=== PATIENT | female | born 1995 | race Caucasian/White ===

== ENCOUNTER 2019-08-10 03:11 | Inpatient (IN) ==
[2019-08-10] MEDS ORDERED: PENICILLIN G POTASSIUM 6 MU in DEXTROSE 5% 250 ML IV STA (03:50)
[2019-08-10] MEDS ORDERED: OXYTOCIN 30 UNITS/500 ML BAG IV PRN ×3 (03:50→19:27)
--- NOTE | 2019-08-10 03:58 | History & Physical Report ---
Date of Service August 10, 2019 Assessment & Plan (1) Group B streptococcal carriage complicating : plan pcn prophylaxis (2) Normal labor: Plan to admit as this is change from yesterday and consistent with early labor. Plan expectant management for now. arom/pit as indicated. Would like to attempt unmedicated. fetus category one. History of Present Illness Chief Complaint: contractions Primary Care Provider: NO PCP Patient is a 23yowf with iup at 40 2/7 weeks who presents to labor and delivery with contractions. Notes bloody show with wiping. +fm. complicated by gbs positive urine. labs--O+/ab-/ri/rprnr/hepb-/hiv-/gtt nl x 2/ gbs positive urine/gc/ct-/ cf/sma neg/low risk panorama/ afp negative. Allergies Allergy/AdvReac Type Severity Reaction Status Date / Time No Known Allergies Allergy Verified 08/10/19 03:25 Home Medications Home Medications Medication Instructions Recorded Confirmed Type prenat.vits,melany,ves-mfpn-jhkws 1 tab PO DAILY 12/22/18 08/10/19 History Patient History Social History (Updated 12/22/18 @ 11:03 by Leticia Duval) Preferred Language: Thai [employer] Required: No Beliefs That Will Affect Care: None marital status: marital status details: Antelmo (24) [phone] Current Living Situation: Spouse Current Living Situation Comment: spouse and 2 dogs current occupational status: employed 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 Other Information That Helps Us Care for You: No Feels Safe at Home: Yes Safety Concerns: Feels Safe At This Time Smoking Status: Never smoker Hx Alcohol Use: No Hx Substance Use: No OB History g1--present [employer] History no abnl pap, no stds Review of Systems All systems reviewed & are unremarkable except as noted in HPI & below Physical Exam Constitutional: WD/WN, vitals as above Gastrointestinal (Abdomen): soft, gravid, nt Psychiatric: A+Ox3, euthymic affect Genitourinary: cx--/-2, bulging membranes us--cephalic toco--q2-4min efm--130s with mod variabiltiy, small accels, no decels Results & Data ([facility]) Vital Signs (Past 12 Hours) Vital Signs Temp Pulse Resp BP 08/10/19 03:25 36.3 C L 90 16 119/69 08/10/19 03:22 36.3 C L 90 16 119/69 Code Status & VTE Plan VTE Prophylaxis Plan VTE Prophylaxis will be ordered: No Coding Level of Care Code None Diagnoses Group B streptococcal carriage complicating O99.820 Normal labor O80; Z37.9
[2019-08-10 04:28] LABS: Hematocrit (blood only) 39.4 % (37-47); Hemoglobin 13.5 g/dL (12.0-16.0); Mean Corpuscular Hemoglobin 29.3 pg (25-34); Mean Corpuscular Volume 85.5 fL (80-100); Mean Platelet Volume 12.6 fL (7.4-10.4); Platelet Count 159 K/uL (130-400); RDW Coefficient of Variation 12.1 % (11.5-14.5); Red Blood Count 4.61 M/uL (4.2-5.4); White Blood Count 12.06 K/uL (4.8-10.8)
[2019-08-10] MEDS: LACTATED RINGER'S 1,000 ML IV PRN ×3 (04:31→13:47)
[2019-08-10 04:44] LABS: Mean Corpuscular Hgb Conc 34.3 g/dL (32-36)
--- NOTE | 2019-08-10 07:51 | Labor Progress Brief Note ---
Date of Service August 10, 2019 Subjective Noting some contractions and more uncomfortable Assessment & Plan (1) Normal labor: arom performed. fetus category one. epidural if desired. anticipate vaginal delivery Admission and Anticipated Discharge Date Admission Date: August 10, 2019 Physical Exam Constitutional: WD/WN, vitals as above Psychiatric: A+Ox3, euthymic affect Genitourinary: cx--3+/90/-2 arom--clear toco--q3-5min efm--140s with mod variability, small accels, no decels Results & Data ([facility]) Vital Signs (Past 12 Hours) Vital Signs Temp Pulse Resp BP 08/10/19 07:37 77 115/72 08/10/19 03:25 36.3 C L 90 16 119/69 08/10/19 03:22 36.3 C L 90 16 119/69 Coding Level of Care Code None Diagnoses Normal labor O80; Z37.9
[2019-08-10] MEDS ORDERED: ePHEDrine sulfate 50 MG/ML AMP ONE (08:05)
[2019-08-10] MEDS ORDERED: BUPIVACAINE 0.25% 30 ML VIAL ONE (08:05)
[2019-08-10] MEDS ORDERED: fentaNYL 2MCG/ML ROPIV 1.25MG/ML 100 ML BAG EPI ONE ×2 (08:06→16:24)
[2019-08-10] MEDS ORDERED: fentaNYL citrate 100 MCG/2 ML VIAL ONE (08:06)
[2019-08-10] MEDS: PENICILLIN G POTASSIUM 3 MU in DEXTROSE 5% 100 ML IV PRN ×3 (08:23→17:21)
--- NOTE | 2019-08-10 08:32 | Anesthesiology Consultation ---
Date of Service August 10, 2019 Assessment & Plan (1) Encounter for pre-operative examination: Chart Review Chart Review: Acceptable Risk for Labor Epidural Consults Requested none ASA ASA2 Proposed Anesthesia Anesthesia Type: Labor Epidural Risk / Benefits Reviewed With: PT / POA / Parent / Guardian, Accepts Plan and Informed Consent Obtained History Height/Weight Height: 5 ft 5 in Weight: 86.636 kg Allergies Allergy/AdvReac Type Severity Reaction Status Date / Time No Known Allergies Allergy Verified 08/10/19 03:25 Medications Home Medications Medication Instructions Recorded Confirmed Last Taken prenat.vits,melany,ahz-fzpf-wlsls 1 tab PO DAILY 12/22/18 08/10/19 08/09/19 12:00 Active Medications Generic Name Dose Route Start Last Admin Trade Name Freq PRN Reason Stop Dose Admin Lactated Ringer's 1,000 mls @ 125 mls/hr 08/10/19 03:50 08/10/19 08:05 Lr IV 08/12/19 03:49 999 mls/hr .Q8H PRN Infusion L&D Protocol Protocol Penicillin G Potassium 3 mu/ 106 mls @ 100 mls/hr 08/10/19 03:50 08/10/19 08:23 Dextrose IV 08/20/19 03:49 100 mls/hr Q4H PRN Administration Give until delivery Past Medical History Medical History Encounter for anatomic survey Hx of migraines Varicella vaccine Exercise / Class Metabolic Activity II 4-5 Yardwork/Stairs/Walk up hill Past Family History Family History Mother Hx of migraines Past Anesthesia History No Hx of Anesthesia Complications and No Family Hx of Anesthesia Complications History of PONV No Hx of PONV and No Hx of Motion Sickness Social History Smoking Status: Never smoker Hx Alcohol Use: No Hx Substance Use: No substance use type: does not use Physical Exam Vital Signs Last Vital Signs Temp 99.0 F 08/10/19 07:37 Pulse 92 H 08/10/19 08:26 Resp 16 08/10/19 07:37 BP 115/72 08/10/19 07:37 Pulse Ox 98 08/10/19 08:26 ENMT Mouth: no dentition abnormality Thyromental Distance: > or= 3.5 Finger Breadths Mallampati Class: II Neck normal visual inspection Respiratory normal respiratory effort Auscultation: lungs clear to auscultation bilaterally Cardiovascular Rate/Rhythm: regular rate and regular rhythm Testing Laboratory Results 08/10/19 04:07
[2019-08-10] MEDS ORDERED: DiphenhydrAMINE HCL 50 MG/ML VIAL IV PRN (08:52)
[2019-08-10] MEDS ORDERED: ePHEDrine sulfate 50 MG/ML AMP IV PRN (08:52)
[2019-08-10] MEDS ORDERED: NALBUPHINE HCL INJ 10 MG/ML AMP IV PRN (08:52)
[2019-08-10] MEDS ORDERED: ONDANSETRON INJ 2 MG/ML 2 ML VIAL IV PRN (08:52)
[2019-08-10] MEDS ORDERED: NALOXONE HCL 0.4 MG/1 ML VIAL/CARP IV PRN (08:52)
[2019-08-10] MEDS ORDERED: NALOXONE HCL 1 MG in SODIUM CHLORIDE 0.9% 1000ML 1,000 ML IV PRN (08:52)
[2019-08-10] MEDS ORDERED: fentaNYL 2MCG/ML ROPIV 1.25MG/ML 100 ML BAG EPI PRN (08:52)
--- NOTE | 2019-08-10 10:49 | Labor Progress Brief Note ---
Date of Service August 10, 2019 Subjective Reason For Note: Routine Evaluation pt aware i am taking over care. came into L&D in early labor 40+ wks, AROM done by my partner. got epidural and now comfortable. Assessment & Plan (1) Supervision of normal intrauterine in primigravida: (2) Group B streptococcal carriage complicating : (3) Normal labor: on abx for gbs pos. labor pattern irregular. rec pitocin sep and pt agrees. efw 7-8#. fhts categ1. Admission and Anticipated Discharge Date Admission Date: August 10, 2019 Physical Exam Constitutional: WD/WN, vitals as above Genitourinary: OB Exam Monitor Tracing: + external FHT monitor used (150 mod variability), + external uterine monitor used (q5), + category I and + normal FHT variability Results & Data ([facility]) Vital Signs (Past 12 Hours) Vital Signs Temp Pulse Resp BP Pulse Ox 08/10/19 10:44 77 120/66 08/10/19 10:41 70 100 08/10/19 10:36 68 100 08/10/19 10:31 72 100 08/10/19 10:29 77 123/67 08/10/19 10:26 70 100 08/10/19 10:21 87 100 08/10/19 10:16 66 100 08/10/19 10:11 100 H 100 08/10/19 10:09 72 109/57 L 08/10/19 10:06 73 99 08/10/19 10:04 83 120/79 08/10/19 10:01 78 100 08/10/19 09:59 77 107/55 L 08/10/19 09:56 70 100 08/10/19 09:55 73 110/53 L 08/10/19 09:51 76 100 08/10/19 09:50 75 104/57 L 08/10/19 09:46 68 97 08/10/19 09:43 68 104/61 08/10/19 09:41 71 98 08/10/19 09:38 68 105/58 L 08/10/19 09:36 79 98 08/10/19 09:34 83 111/60 08/10/19 09:31 82 99 08/10/19 09:28 92 H 109/63 08/10/19 09:26 121 H 99 08/10/19 09:25 109 H 108/64 08/10/19 09:21 90 98 08/10/19 09:18 75 112/63 08/10/19 09:16 71 96 08/10/19 09:15 18 08/10/19 09:14 66 114/63 08/10/19 09:11 77 97 08/10/19 09:09 83 117/67 08/10/19 09:06 84 99 08/10/19 09:03 90 116/59 L 08/10/19 09:01 95 H 112/57 L 97 08/10/19 09:00 98.4 F 18 08/10/19 08:59 94 H 112/55 L 08/10/19 08:57 92 H 105/53 L 08/10/19 08:56 90 97 08/10/19 08:55 89 16 108/56 L 08/10/19 08:53 81 128/56 L 08/10/19 08:51 93 H 99 08/10/19 08:46 84 97 08/10/19 08:41 95 H 98 08/10/19 08:36 84 98 08/10/19 08:31 91 H 98 08/10/19 08:26 92 H 98 08/10/19 08:21 82 98 08/10/19 07:37 99.0 F 77 16 115/72 08/10/19 03:25 97.3 F L 90 16 119/69 08/10/19 03:22 97.3 F L 90 16 119/69 Coding Level of Care Code None Diagnoses Supervision of normal intrauterine in primigravida Z34.00 Group B streptococcal carriage complicating O99.820 Normal labor O80; Z37.9
--- NOTE | 2019-08-10 14:30 | Labor Progress Brief Note ---
Date of Service August 10, 2019 Subjective Reason For Note: Routine Evaluation occas low pain in pelvis and back Assessment & Plan (1) Normal labor: (2) Group B streptococcal carriage complicating : good progress, c/w pit Admission and Anticipated Discharge Date Admission Date: August 10, 2019 Physical Exam Constitutional: WD/WN, vitals as above Psychiatric: A+Ox3, euthymic affect Genitourinary: Manual OB Exam: + cervical dilation 7 cm, + cervical effacement 90% and + station -2 OB Exam Monitor Tracing: + external FHT monitor used (145 mod variability), + external uterine monitor used (q2-3), + category I and + normal FHT variability pit a 5 Results & Data ([facility]) Vital Signs (Past 12 Hours) Vital Signs Temp Pulse Resp BP Pulse Ox 08/10/19 14:26 130 H 100 08/10/19 14:21 91 H 97 08/10/19 14:16 99 H 99 08/10/19 14:14 100 H 108/59 L 92 08/10/19 14:11 99 H 100 08/10/19 14:06 91 H 99 08/10/19 14:01 84 99 08/10/19 13:59 90 124/80 08/10/19 13:56 90 99 08/10/19 13:51 95 H 100 08/10/19 13:46 98 H 100 08/10/19 13:44 93 H 134/63 08/10/19 13:41 98 H 99 08/10/19 13:36 84 100 08/10/19 13:31 83 100 08/10/19 13:30 18 08/10/19 13:28 86 113/68 08/10/19 13:26 78 98 08/10/19 13:21 74 98 08/10/19 13:16 69 98 08/10/19 13:14 76 114/73 08/10/19 13:11 85 98 08/10/19 13:06 75 97 08/10/19 13:01 72 98 08/10/19 13:00 98.4 F 16 08/10/19 12:59 73 110/61 08/10/19 12:56 74 97 08/10/19 12:51 73 98 08/10/19 12:46 73 99 08/10/19 12:43 81 136/73 08/10/19 12:41 77 100 08/10/19 12:36 93 H 100 08/10/19 12:31 82 100 08/10/19 12:29 146 H 146/67 H 08/10/19 12:26 80 100 08/10/19 12:21 87 99 08/10/19 12:16 90 100 08/10/19 12:13 83 113/64 08/10/19 12:11 65 98 08/10/19 12:06 109 H 98 08/10/19 12:01 72 97 08/10/19 12:00 64 117/66 08/10/19 11:56 75 96 08/10/19 11:51 69 97 08/10/19 11:49 62 94 08/10/19 11:46 70 95 08/10/19 11:43 69 103/58 L 08/10/19 11:41 69 96 08/10/19 11:36 63 95 08/10/19 11:31 59 L 96 08/10/19 11:30 18 08/10/19 11:29 64 112/59 L 08/10/19 11:26 70 98 08/10/19 11:21 71 97 08/10/19 11:16 73 97 08/10/19 11:14 59 L 112/64 08/10/19 11:11 59 L 97 08/10/19 11:06 73 99 08/10/19 11:01 75 100 08/10/19 11:00 98.1 F 16 08/10/19 10:58 65 111/59 L 08/10/19 10:56 79 100 08/10/19 10:51 68 100 08/10/19 10:46 79 100 08/10/19 10:45 16 08/10/19 10:44 77 120/66 08/10/19 10:41 70 100 08/10/19 10:36 68 100 08/10/19 10:31 72 100 08/10/19 10:30 18 08/10/19 10:29 77 123/67 08/10/19 10:26 70 100 08/10/19 10:21 87 100 08/10/19 10:16 66 100 08/10/19 10:15 16 08/10/19 10:11 100 H 100 08/10/19 10:09 72 109/57 L 08/10/19 10:06 73 99 08/10/19 10:04 83 120/79 08/10/19 10:01 78 100 08/10/19 10:00 16 08/10/19 09:59 77 107/55 L 08/10/19 09:56 70 100 08/10/19 09:55 73 110/53 L 08/10/19 09:51 76 100 08/10/19 09:50 75 104/57 L 08/10/19 09:46 68 97 08/10/19 09:45 18 08/10/19 09:43 68 104/61 08/10/19 09:41 71 98 08/10/19 09:38 68 105/58 L 08/10/19 09:36 79 98 08/10/19 09:34 83 111/60 08/10/19 09:31 82 99 08/10/19 09:30 18 08/10/19 09:28 92 H 109/63 08/10/19 09:26 121 H 99 08/10/19 09:25 109 H 108/64 08/10/19 09:21 90 98 08/10/19 09:18 75 112/63 08/10/19 09:16 71 96 08/10/19 09:15 18 08/10/19 09:14 66 114/63 08/10/19 09:11 77 97 08/10/19 09:09 83 117/67 08/10/19 09:06 84 99 08/10/19 09:03 90 116/59 L 08/10/19 09:01 95 H 112/57 L 97 08/10/19 09:00 98.4 F 18 08/10/19 08:59 94 H 112/55 L 08/10/19 08:57 92 H 105/53 L 08/10/19 08:56 90 97 08/10/19 08:55 89 16 108/56 L 08/10/19 08:53 81 128/56 L 08/10/19 08:51 93 H 99 08/10/19 08:46 84 97 08/10/19 08:41 95 H 98 08/10/19 08:36 84 98 08/10/19 08:31 91 H 98 08/10/19 08:26 92 H 98 08/10/19 08:21 82 98 08/10/19 07:37 99.0 F 77 16 115/72 08/10/19 03:25 97.3 F L 90 16 119/69 08/10/19 03:22 97.3 F L 90 16 119/69 Coding Level of Care Code None Diagnoses Normal labor O80; Z37.9 Group B streptococcal carriage complicating O99.820
[2019-08-10] MEDS ORDERED: miSOPROStoL 200 MCG TAB ONE (19:16)
--- NOTE | 2019-08-10 19:18 | Delivery Summary ---
Vaginal Delivery Summary Date of Service August 10, 2019 The patient dilated to complete and pushed to deliver a viable male Apgars 8 and 9 via over 2nd degree perineal laceration. Mouth and nose bulb suctioned at perineum. Shoulders and body delivered with ease. Infant was vigorous and crying at . Cord clamped at 30 seconds of life and to maternal abdomen where the cord was then doubly clamped and cut. Placenta delivered spontaneously and intact, three-vessel cord. Hemostasis not achieved with dilute pitocin and uterine massage, bimanual massage and drainage of the bladder for approximately 50 cc under sterile conditions. Therefore rectal cytotec 800mcg given. Uterine tone improving. Laceration repaired in usual fashion with 3-0 vicryl. Additional laceration of right labia reapproximated with 3-0 vicryl. Cervix and sulci intact. EBL 500 cc. Mother and baby stable recovery. [facility] Vaginal Delivery Charge Vaginal Delivery Codes: 20894 global code for the antepartum, delivery, and post-
[2019-08-10] MEDS ORDERED: OXYCODONE/ACETAMINOPHEN 5mg/325mg TAB PO PRN (19:27)
[2019-08-10] MEDS ORDERED: SUPERCREAM 0.870% 15 GM JAR EXT PRN (19:27)
[2019-08-10] MEDS ORDERED: DIPHTHERIA/TETANUS/PERTUSSIS 0.5 ML SYR/VIAL IM ONE (19:27)
[2019-08-10] MEDS ORDERED: HYDROCORTISONE ACETATE 25 MG SUPP PR PRN (19:27)
[2019-08-10] MEDS ORDERED: ACETAMINOPHEN 325 MG TAB PO PRN (19:27)
[2019-08-10] MEDS ORDERED: miSOPROStoL 200 MCG TAB PR ONE (19:27)
[2019-08-10] MEDS ORDERED: BENZOCAINE 20% AER SPR 82.5 GM CAN EXT PRN (19:27)
[2019-08-10] MEDS ORDERED: OXYTOCIN 20 UNITS in LACTATED RINGER'S 1,000 ML IV SCH (19:27)
[2019-08-10] MEDS: DOCUSATE SODIUM 100 MG CAP PO SCH (20:58)
--- NOTE | 2019-08-10 21:21 | Anesthesiology Progress Note ---
Date of Service August 10, 2019 Anesthesia Post Procedure Vital Signs Vital Signs: Temp Pulse Resp BP Pulse Ox 08/10/19 21:06 95 H 123/60 08/10/19 21:05 37.4 C 16 08/10/19 20:52 91 H 121/55 L 08/10/19 20:37 97 H 136/56 L 08/10/19 20:22 100 H 82/48 L 08/10/19 20:07 93 H 140/57 L 08/10/19 20:05 18 08/10/19 19:50 18 08/10/19 19:36 101 H 122/58 L 08/10/19 19:35 18 08/10/19 19:23 105 H 140/61 08/10/19 19:20 18 08/10/19 19:06 120 H 122/73 08/10/19 19:05 18 08/10/19 18:58 89 120/60 08/10/19 18:43 103 H 105/53 L 08/10/19 18:26 136 H 98 08/10/19 18:21 137 H 99 08/10/19 18:16 146 H 97 08/10/19 18:11 142 H 96 08/10/19 18:06 124 H 100 08/10/19 18:01 125 H 20 100 08/10/19 17:58 98 H 134/67 08/10/19 17:56 98 H 100 08/10/19 17:51 101 H 100 08/10/19 17:46 99 H 100 08/10/19 17:44 108 H 149/85 H 08/10/19 17:41 106 H 100 08/10/19 17:36 77 100 08/10/19 17:31 75 20 100 08/10/19 17:28 77 119/63 08/10/19 17:26 83 100 08/10/19 17:25 37.9 C H 20 08/10/19 17:21 82 99 08/10/19 17:16 101 H 100 08/10/19 17:13 83 130/64 08/10/19 17:11 87 100 08/10/19 17:06 84 99 08/10/19 17:01 82 20 99 08/10/19 16:59 83 126/64 08/10/19 16:56 88 99 08/10/19 16:51 73 99 08/10/19 16:46 80 99 08/10/19 16:44 79 120/70 08/10/19 16:41 93 H 99 08/10/19 16:36 82 98 08/10/19 16:31 86 20 100 08/10/19 16:29 84 93 08/10/19 16:28 85 114/57 L 08/10/19 16:26 89 99 08/10/19 16:23 84 92 08/10/19 16:21 84 98 08/10/19 16:16 79 99 08/10/19 16:14 78 123/67 08/10/19 16:11 71 98 08/10/19 16:06 76 97 08/10/19 16:01 75 20 97 08/10/19 15:59 78 126/68 08/10/19 15:56 97 H 98 08/10/19 15:51 112 H 98 08/10/19 15:46 114 H 100 08/10/19 15:44 118 H 118/77 08/10/19 15:41 92 H 98 08/10/19 15:36 89 96 08/10/19 15:31 79 20 97 08/10/19 15:28 99 H 112/72 08/10/19 15:26 80 97 08/10/19 15:21 95 H 98 08/10/19 15:16 83 97 08/10/19 15:13 117 H 116/78 08/10/19 15:11 87 98 08/10/19 15:10 37.4 C 20 08/10/19 15:06 89 98 08/10/19 15:01 81 97 08/10/19 14:58 93 H 117/69 08/10/19 14:56 93 H 98 08/10/19 14:51 94 H 98 08/10/19 14:46 88 97 08/10/19 14:44 84 119/71 08/10/19 14:41 115 H 97 08/10/19 14:36 99 H 97 08/10/19 14:31 117 H 99 08/10/19 14:30 20 08/10/19 14:28 90 121/73 08/10/19 14:26 130 H 100 08/10/19 14:21 91 H 97 08/10/19 14:16 99 H 99 08/10/19 14:14 100 H 108/59 L 92 08/10/19 14:11 99 H 100 08/10/19 14:06 91 H 99 08/10/19 14:01 84 99 08/10/19 13:59 90 124/80 08/10/19 13:56 90 99 08/10/19 13:51 95 H 100 08/10/19 13:46 98 H 100 08/10/19 13:44 93 H 134/63 08/10/19 13:41 98 H 99 08/10/19 13:36 84 100 08/10/19 13:31 83 100 08/10/19 13:30 18 08/10/19 13:28 86 113/68 08/10/19 13:26 78 98 08/10/19 13:21 74 98 08/10/19 13:16 69 98 08/10/19 13:14 76 114/73 08/10/19 13:11 85 98 08/10/19 13:06 75 97 08/10/19 13:01 72 98 08/10/19 13:00 36.9 C 16 08/10/19 12:59 73 110/61 08/10/19 12:56 74 97 08/10/19 12:51 73 98 08/10/19 12:46 73 99 08/10/19 12:43 81 136/73 08/10/19 12:41 77 100 08/10/19 12:36 93 H 100 08/10/19 12:31 82 100 08/10/19 12:29 146 H 146/67 H 08/10/19 12:26 80 100 08/10/19 12:21 87 99 08/10/19 12:16 90 100 08/10/19 12:13 83 113/64 08/10/19 12:11 65 98 08/10/19 12:06 109 H 98 08/10/19 12:01 72 97 08/10/19 12:00 64 117/66 08/10/19 11:56 75 96 08/10/19 11:51 69 97 08/10/19 11:49 62 94 08/10/19 11:46 70 95 08/10/19 11:43 69 103/58 L 08/10/19 11:41 69 96 08/10/19 11:36 63 95 08/10/19 11:31 59 L 96 06/30/20 11:30 18 08/10/19 11:29 64 112/59 L 08/10/19 11:26 70 98 08/10/19 11:21 71 97 08/10/19 11:16 73 97 08/10/19 11:14 59 L 112/64 08/10/19 11:11 59 L 97 08/10/19 11:06 73 99 08/10/19 11:01 75 100 08/10/19 11:00 36.7 C 16 08/10/19 10:58 65 111/59 L 08/10/19 10:56 79 100 08/10/19 10:51 68 100 08/10/19 10:46 79 100 08/10/19 10:45 16 08/10/19 10:44 77 120/66 08/10/19 10:41 70 100 08/10/19 10:36 68 100 08/10/19 10:31 72 100 08/10/19 10:30 18 08/10/19 10:29 77 123/67 08/10/19 10:26 70 100 08/10/19 10:21 87 100 08/10/19 10:16 66 100 08/10/19 10:15 16 08/10/19 10:11 100 H 100 08/10/19 10:09 72 109/57 L 08/10/19 10:06 73 99 08/10/19 10:04 83 120/79 08/10/19 10:01 78 100 08/10/19 10:00 16 08/10/19 09:59 77 107/55 L 08/10/19 09:56 70 100 08/10/19 09:55 73 110/53 L 08/10/19 09:51 76 100 08/10/19 09:50 75 104/57 L 08/10/19 09:46 68 97 08/10/19 09:45 18 08/10/19 09:43 68 104/61 08/10/19 09:41 71 98 08/10/19 09:38 68 105/58 L 08/10/19 09:36 79 98 08/10/19 09:34 83 111/60 08/10/19 09:31 82 99 08/10/19 09:30 18 08/10/19 09:28 92 H 109/63 08/10/19 09:26 121 H 99 08/10/19 09:25 109 H 108/64 08/10/19 09:21 90 98 08/10/19 09:18 75 112/63 08/10/19 09:16 71 96 08/10/19 09:15 18 08/10/19 09:14 66 114/63 08/10/19 09:11 77 97 08/10/19 09:09 83 117/67 08/10/19 09:06 84 99 08/10/19 09:03 90 116/59 L 08/10/19 09:01 95 H 112/57 L 97 08/10/19 09:00 36.9 C 18 08/10/19 08:59 94 H 112/55 L 08/10/19 08:57 92 H 105/53 L 08/10/19 08:56 90 97 08/10/19 08:55 89 16 108/56 L 08/10/19 08:53 81 128/56 L 08/10/19 08:51 93 H 99 08/10/19 08:46 84 97 08/10/19 08:41 95 H 98 08/10/19 08:36 84 98 08/10/19 08:31 91 H 98 08/10/19 08:26 92 H 98 08/10/19 08:21 82 98 08/10/19 07:37 37.2 C 77 16 115/72 08/10/19 03:25 36.3 C L 90 16 119/69 08/10/19 03:22 36.3 C L 90 16 119/69 Transfer of Care Handoff Completed per policy Notes Mental Status: alert / awake / arousable and participated in evaluation Patient Amnestic to Procedure: Yes Nausea / Vomiting: adequately controlled Pain: adequately controlled Airway Patency, RR, SpO2: stable & adequate BP & HR: stable & adequate Hydration State: stable & adequate Anesthetic Complications: no major complications apparent and Pt Satisfied with anesthetic care
[2019-08-10] MEDS: IBUPROFEN 600 MG TAB PO PRN (22:35)
[2019-08-11 06:01] LABS: Hematocrit (blood only) 32.2 % (37-47); Hemoglobin 10.9 g/dL (12.0-16.0)
--- NOTE | 2019-08-11 07:49 | Obstetrical Progress Note ---
Date of Service August 11, 2019 Assessment & Plan (1) examination following vaginal delivery: stable, routine care. bottle, rh pos, ri. Day #:: 1 Subjective Ambulation: ambulating normally Voiding: no voiding problems Diet Tolerance:: regular diet Lochia:: Small Feeding Type:: bottle feeding denies pain issues. Physical Exam Constitutional WD/WN, vitals as above Respiratory normal respiratory effort, lungs clear to auscultation Cardiovascular Rate/Rhythm: regular rate and regular rhythm Gastrointestinal (Abdomen) Percussion/Palpation: abdomen soft; abdomen nontender ff 2down nt Psychiatric A+Ox3, euthymic affect Results & Data ([facility]) Vital Signs (Past 12 Hours) Vital Signs Temp Pulse Pulse Resp BP BP Pulse Ox 08/11/19 03:05 97.7 F 71 16 110/74 97 08/10/19 23:25 98.8 F 83 20 115/73 97 08/10/19 21:50 99.1 F 85 18 108/72 08/10/19 21:06 95 H 123/60 08/10/19 21:05 99.3 F 16 08/10/19 20:52 91 H 121/55 L 08/10/19 20:37 97 H 136/56 L 08/10/19 20:22 100 H 82/48 L 08/10/19 20:07 93 H 140/57 L 08/10/19 20:05 18 08/10/19 19:50 18
[2019-08-11] MEDS: DOCUSATE SODIUM 100 MG CAP PO SCH ×2 (08:39→20:53)
[2019-08-11] MEDS: IBUPROFEN 600 MG TAB PO PRN ×2 (11:48→16:25)
--- NOTE | 2019-08-12 07:16 | Obstetrical Progress Note ---
Date of Service August 12, 2019 Assessment & Plan (1) examination following vaginal delivery: - doing well - desires d/c - instructions given - f/u in 6 weeks Subjective Ambulation: ambulating normally Diet Tolerance:: regular diet Feeding Type:: bottle feeding Physical Exam Constitutional WD/WN, vitals as above Gastrointestinal (Abdomen) Fundus firm below umbilicus Musculoskeletal No deep calf tenderness Results & Data [facility]) Vital Signs (Past 12 Hours) Vital Signs Temp Pulse Resp BP 08/11/19 23:45 98.2 F 60 16 106/68
[2019-08-12] MEDS: IBUPROFEN 600 MG TAB PO PRN (08:42)
[2019-08-12] MEDS: DOCUSATE SODIUM 100 MG CAP PO SCH (08:42)
== END 2019-08-12 11:15 | disposition home or self-care (01) | DRG 807 ==
LOC: OPB 03:11 → 4S1 03:14 → 4S2 21:47

== ENCOUNTER 2021-08-18 09:50 | Inpatient (IN) ==
[2021-08-18] MEDS ORDERED: OXYTOCIN 30 UNITS/500 ML BAG IV PRN ×2 (13:12→18:07)
--- NOTE | 2021-08-18 13:20 | History & Physical Report ---
Date of Service August 18, 2021 Assessment & Plan (1) Supervision of normal intrauterine in multigravida: Plan: 25-year-old at 39 weeks 6 days gestational age presents in early labor. 1. Fetus: Cat 1 2. Labor: Progressing. Will AROM following epidural placement 3. GBS negative 4. Vitals normal (2) Normal labor: Admission and Anticipated Discharge Date Admission Date: August 18, 2021 History of Present Illness Primary Care Provider: NO PCP 25-year-old admitted at 39 weeks 6 days gestational age in early labor. Patient having regular painful contractions. Denies leakage of fluid vaginal bleeding and having good movement. has been uncomplicated to date. OB Labs: Blood Type O Positive 02/07/21 Antibody Screen NEGATIVE 02/07/21 Hemoglobin 12.5 g/dL (12.0-16.0) 05/31/21 Hematocrit 36.5 % (37-47) L 05/31/21 Mean Corpuscular Volume 87.0 fL (80-100) 02/07/21 Platelet Count 194 K/uL (130-400) 02/07/21 Rubella IgG Antibody Immune (Immune) 02/07/21 Rapid Plasma Reagin Nonreactive (Nonreactive) 02/07/21 Hepatitis B Surface Antigen Neg (Neg) 02/07/21 Hepatitis C Antibody Neg (Neg) 02/07/21 HIV (1&2) Ab and P24 Ag, 4th Gener Neg (Neg) 02/07/21 Glucose 1 Hour 50 gm Load 91 mg/dl (70-130) 05/31/21 Maternal Serum Alpha Fetoprotein 31.8 ng/mL 03/07/21 OB Optional Labs: Chlamydia trachomatis RNA NOT DETECTED (NOT DETECTED) 02/07/21 Neisseria gonorrhoeae RNA NOT DETECTED (NOT DETECTED) 02/07/21 Alpha Fetoprotein Triple Screen SEE NOTE 03/07/21 Labs Reviewed: CF/SMA negative in prior (12/28/18) Cfdna low risk--mln Allergies Allergy/AdvReac Type Severity Reaction Status Date / Time No Known Allergies Allergy Verified 08/16/21 14:33 Home Medications Medication Instructions Recorded Confirmed Type prenat.vits,melany,hsk-[id number]-ffjhf 1 tab PO DAILY 12/22/18 08/16/21 History cetirizine 10 mg tablet (Zyrtec) 10 mg PO DAILY PRN 01/16/21 08/16/21 History Patient History Medical History (Updated 08/18/21 @ 13:18 by Christian Saunders MD) Hx of migraines Varicella vaccine Family History Mother Hx of migraines Social History (Updated 01/16/21 @ 11:00 by María Hernandez) Smoking Status: Never smoker Hx Alcohol Use: No Hx Substance Use: No Preferred Language: French Clinical Reimbursement Specialist Required: No Beliefs That Will Affect Care: None marital status: marital status details: Antelmo (26) [phone] Current Living Situation: Family Current Living Situation Comment: spouse, son and 2 dogs current occupational status: employed 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 Results & Data ([facility]) Vital Signs (Past 12 Hours) Vital Signs Temp Pulse Resp BP 08/18/21 10:04 36.5 C 20 08/18/21 10:00 109 H 118/77 Code Status & VTE Plan VTE Prophylaxis Plan VTE Prophylaxis will be ordered: No Coding Level of Care Code None Diagnoses Supervision of normal intrauterine in multigravida Z34.80 Normal labor O80; Z37.9
[2021-08-18] MEDS: LACTATED RINGER'S 1,000 ML IV PRN ×2 (13:49→15:00)
[2021-08-18] MEDS ORDERED: NALOXONE HCL 1 MG in SODIUM CHLORIDE 0.9% 1000ML 1,000 ML IV PRN (13:51)
[2021-08-18] MEDS ORDERED: NALOXONE HCL 0.4 MG/1 ML VIAL/CARP IV PRN (13:51)
[2021-08-18] MEDS ORDERED: NALBUPHINE HCL INJ 10 MG/ML AMP IV PRN (13:51)
[2021-08-18] MEDS ORDERED: diphenhydrAMINE 50 MG/ML VIAL IV PRN (13:51)
[2021-08-18] MEDS ORDERED: ONDANSETRON INJ 2 MG/ML 2 ML VIAL IV PRN (13:51)
[2021-08-18] MEDS ORDERED: ePHEDrine sulfate 50 MG/ML AMP IV PRN (13:51)
[2021-08-18] MEDS ORDERED: fentaNYL 2MCG/ML ROPIVACAINE 1.25MG/ML 100 ML BAG EPI PRN (13:51)
[2021-08-18] MEDS ORDERED: ePHEDrine sulfate 50 MG/ML AMP ONE (13:59)
[2021-08-18] MEDS ORDERED: LIDOCAINE 2%/EPINEPHRINE 1:200,000 20 ML SDV ONE (14:00)
[2021-08-18] MEDS ORDERED: BUPIVACAINE 0.25% 30 ML VIAL ONE (14:00)
[2021-08-18] MEDS ORDERED: fentaNYL 2MCG/ML ROPIVACAINE 1.25MG/ML 100 ML BAG EPI ONE (14:00)
[2021-08-18] MEDS ORDERED: fentaNYL citrate 100 MCG/2 ML VIAL ONE (14:00)
[2021-08-18] MEDS ORDERED: SODIUM CHLORIDE 0.9% INJ 10 ML VIAL ONE (14:00)
[2021-08-18 14:14] LABS: Hematocrit (blood only) 39.3 % (34.1-44.9); Hemoglobin 13.4 g/dl (12.0-16.0); Mean Corpuscular Hemoglobin 27.9 pg (25.0-34.0); Mean Corpuscular Hgb Conc 34.1 g/dL (32.0-36.0); Mean Corpuscular Volume 81.7 fL (80.0-100.0); Platelet Count 174 K/uL (130-400); RDW Coefficient of Variation 12.4 % (11.5-14.5); RDW Standard Deviation 36.5 fL (36.4-46.3); Red Blood Count 4.81 M/uL (3.93-5.22); White Blood Count 13.01 K/ul (4.8-10.8)
--- NOTE | 2021-08-18 14:19 | Anesthesiology Consultation ---
Date of Service August 18, 2021 Assessment & Plan (1) Encounter for pre-operative examination: Chart Review Chart Review: Acceptable Risk for Labor Epidural Consults Requested none ASA ASA2 Proposed Anesthesia Anesthesia Type: Labor Epidural Risk / Benefits Reviewed With: PT / POA / Parent / Guardian, Accepts Plan and Informed Consent Obtained History Height/Weight Height: 5 ft 5 in Weight: 90.265 kg Allergies Allergy/AdvReac Type Severity Reaction Status Date / Time No Known Allergies Allergy Verified 08/18/21 13:28 Medications Home Medications Medication Instructions Recorded Confirmed Last Taken prenat.vits,melany,bgt-sizq-[id number] 1 tab PO DAILY 12/22/18 08/18/21 08/09/19 12:00 cetirizine 10 mg tablet (Zyrtec) 10 mg PO DAILY PRN 01/16/21 08/18/21 Unknown Active Medications Generic Name Dose Route Start Last Admin Trade Name Freq PRN Reason Stop Dose Admin Lactated Ringer's 1,000 mls @ 125 mls/hr 08/18/21 13:12 08/18/21 13:49 Lr IV 08/20/21 13:11 999 mls/hr .Q8H PRN Administration L&D Protocol Protocol Past Medical History Medical History Hx of migraines Varicella vaccine Exercise / Class Metabolic Activity II 4-5 Yardwork/Stairs/Walk up hill Past Family History Family History Mother Hx of migraines Past Anesthesia History No Hx of Anesthesia Complications and No Family Hx of Anesthesia Complications History of PONV No Hx of PONV and No Hx of Motion Sickness Social History Smoking Status: Never smoker Hx Alcohol Use: No Hx Substance Use: No substance use type: does not use Physical Exam Vital Signs Last Vital Signs Temp 97.7 F 08/18/21 10:04 Pulse 109 H 08/18/21 10:00 Resp 20 08/18/21 10:04 BP 118/77 08/18/21 10:00 ENMT Mouth: no dentition abnormality Thyromental Distance: > or= 3.5 Finger Breadths Mallampati Class: II Neck normal visual inspection Respiratory normal respiratory effort Auscultation: lungs clear to auscultation bilaterally Cardiovascular Rate/Rhythm: regular rate and regular rhythm Testing Laboratory Results 08/18/21 13:56
--- NOTE | 2021-08-18 15:10 | Labor Progress Brief Note ---
Date of Service August 18, 2021 Subjective Reason For Note: Routine Evaluation Assessment & Plan (1) Supervision of normal intrauterine in multigravida: Plan: 25-year-old at 39 weeks 6 days gestational age presents in early labor. 1. Fetus: Cat 1 2. Labor: Progressing. Will AROM following epidural placement 3. GBS negative 4. Vitals normal (2) Normal labor: Admission and Anticipated Discharge Date Admission Date: August 18, 2021 Physical Exam Genitourinary: Manual OB Exam: + cervical dilation 8 cm, + cervical effacement 100%, + station 0 and + amniotic fluid clear OB Exam Monitor Tracing: + ext ernal FHT monitor used, + external uterine monitor used, + category I and + normal FHT variability; no early decelerations present, no late decelerations present and no variable decelerations Results & Data ([facility]) Vital Signs (Past 12 Hours) Vital Signs Temp Pulse Resp BP Pulse Ox 08/18/21 15:07 85 100 08/18/21 15:02 79 100 08/18/21 15:01 94 H 115/88 08/18/21 14:57 99 H 100 08/18/21 14:56 87 118/80 08/18/21 14:54 82 92 08/18/21 14:52 88 99 08/18/21 14:51 80 115/70 08/18/21 14:48 88 109/68 08/18/21 14:47 86 99 08/18/21 14:42 113 H 99 08/18/21 14:40 98 H 117/69 08/18/21 14:38 117 H 101/58 L 08/18/21 14:37 115 H 98 08/18/21 14:35 93 H 121/72 08/18/21 14:34 99 H 123/71 08/18/21 14:32 99 H 97 08/18/21 14:27 104 H 97 08/18/21 14:22 102 H 97 08/18/21 14:17 99 H 98 08/18/21 10:04 36.5 C 20 08/18/21 10:00 109 H 118/77 Coding Level of Care Code None Diagnoses Supervision of normal intrauterine in multigravida Z34.80 Normal labor O80; Z37.9
[2021-08-18] MEDS ORDERED: ACETAMINOPHEN 325 MG TAB PO PRN (18:07)
[2021-08-18] MEDS ORDERED: bisacodyL 10 MG SUPP PR PRN (18:07)
[2021-08-18] MEDS ORDERED: HYDROCORTISONE ACETATE 25 MG SUPP PR PRN (18:07)
[2021-08-18] MEDS ORDERED: DIPHTHERIA/TETANUS/PERTUSSIS 0.5 ML SYR/VIAL IM ONE (18:07)
[2021-08-18] MEDS ORDERED: BENZOCAINE 20% AER SPR 82.5 GM CAN EXT PRN (18:07)
[2021-08-18] MEDS: DOCUSATE SODIUM 100 MG CAP PO SCH (20:48)
--- NOTE | 2021-08-18 21:54 | Anesthesia Procedure Note ---
Date of Service August 18, 2021 Anesthesia Post Epidural Note Vital Signs Vital Signs: Temp Pulse Resp BP Pulse Ox 37.2 C 92 H 18 125/77 99 08/18/21 21:35 08/18/21 21:35 08/18/21 21:35 08/18/21 21:35 08/18/21 17:42 Notes Mental Status: alert / awake / arousable Nausea / Vomiting: adequately controlled Pain: adequately controlled Airway Patency, RR, SpO2: stable & adequate BP & HR: stable & adequate Hydration State: stable & adequate Neuraxial Anesthesia: was administered and sensory block is resolving Anesthetic Complications: no major complications apparent and Pt Satisfied with anesthetic care Epidural: Removed without complications and With tip intact
[2021-08-19] MEDS: IBUPROFEN 600 MG TAB PO PRN ×4 (00:42→19:42)
--- NOTE | 2021-08-19 07:53 | Obstetrical Progress Note ---
Date of Service August 19, 2021 Assessment & Plan (1) Encounter for care and examination after delivery: Day 1 s/p . Doing well. Stable for discharge if preferred. Subjective Ambulation: ambulating normally Voiding: no voiding problems Passing Gas:: Yes Diet Tolerance:: regular diet Lochia:: Moderate Feeding Type:: breast feeding Physical Exam Constitutional WD/WN, vitals as above Respiratory normal respiratory effort; no respiratory distress and no labored breathing Gastrointestinal (Abdomen) Inspection/Auscultation: abdomen normal to inspection; abdomen not distended Percussion/Palpation: abdomen soft; abdomen nontender, no guarding and abdomen not rigid Genitourinary OB Exam Abdomen: + fundal height Fundus: + firm and + relation to umbilicus (Below); not tender or not boggy Results & Data ([facility]) Vital Signs (Past 12 Hours) Vital Signs Temp Pulse Pulse Resp BP BP 08/19/21 00:45 36.8 C 79 18 113/65 08/18/21 21:35 37.2 C 92 H 18 125/77 08/18/21 20:02 116 H 106/62
[2021-08-19] MEDS: DOCUSATE SODIUM 100 MG CAP PO SCH ×2 (08:11→19:42)
[2021-08-19] MEDS: FERROUS SULFATE 325 MG TAB PO SCH (08:11)
[2021-08-19] MEDS: PRENATAL VITAMIN 1 TAB PO SCH (08:12)
[2021-08-19] MEDS ORDERED: CETIRIZINE HCL 10 MG TABLET PO PRN (08:21)
[2021-08-19] MEDS ORDERED: bisacodyL 5 MG TABEC PO SCH (20:00)
[2021-08-20] MEDS: IBUPROFEN 600 MG TAB PO PRN ×2 (05:29→13:23)
--- NOTE | 2021-08-20 07:11 | Obstetrical Progress Note ---
Date of Service August 20, 2021 Assessment & Plan (1) Encounter for care and examination after delivery: Day 2 s/p . Doing well. Stable for discharge Subjective Ambulation: ambulating normally Voiding: no voiding problems Passing Gas:: Yes Diet Tolerance:: regular diet Lochia:: Moderate Feeding Type:: breast feeding Physical Exam Constitutional WD/WN, vitals as above Respiratory normal respiratory effort; no respiratory distress and no labored breathing Gastrointestinal (Abdomen) Inspection/Auscultation: abdomen normal to inspection; abdomen not distended Percussion/Palpation: abdomen soft; abdomen nontender, no guarding and abdomen not rigid Genitourinary OB Exam Abdomen: + fundal height Fundus: + firm and + relation to umbilicus (Below); not tender or not boggy Results & Data ([facility]) Vital Signs (Past 12 Hours) Vital Signs Temp Pulse Resp BP 08/19/21 23:45 36.7 C 68 18 101/56 L 08/19/21 21:30 36.8 C 96 H 18 135/83
[2021-08-20] MEDS: FERROUS SULFATE 325 MG TAB PO SCH (08:04)
[2021-08-20] MEDS: DOCUSATE SODIUM 100 MG CAP PO SCH (08:04)
[2021-08-20] MEDS: PRENATAL VITAMIN 1 TAB PO SCH (08:04)
--- NOTE | 2021-08-23 19:21 | Delivery Summary ---
DATE OF SERVICE: 08/18/2021 PROCEDURE: Normal spontaneous vaginal delivery. SURGEON: Christian Saunders MD. PREOPERATIVE DIAGNOSES: 1. Single intrauterine at 39 weeks 6 days gestational age. 2. Spontaneous active labor. POSTOPERATIVE DIAGNOSES: 1. Single intrauterine at 39 weeks 6 days gestational age. 2. Spontaneous active labor. 3. Status post delivery. ESTIMATED BLOOD LOSS: 300 mL. DRAINS: None. FLUIDS: Continuous lactated Ringer. URINE OUTPUT: Not measured. COMPLICATIONS: None. FINDINGS: Viable female with weight of 7 pounds 9 ounces and Apgars of 9 and 9 at one and fi ve minutes respectively. INDICATIONS: The patient was admitted in active labor at 39 weeks 6 days gestational age and progres sed without augmentation. She progressed precipitously and delivered under 1 push to achieve deliver y. DESCRIPTION OF PROCEDURE: The patient progressed to 10 cm dilated, 100% effaced, positive 3-4 statio n, felt a strong urge to push and pushed over 1 contraction to achieve delivery. Head of the delivered in VAISHNAVI position, restituted to right transverse. No nuchal cord was noted. Body and shou lders quickly followed. was noted to be vigorous soon after delivery and 1 minute delayed co rd clamping was initiated. Cord was then double clamped and cut. remained on maternal abdom en. Cord blood was obtained. Attention was then turned to delivery of placenta, which was delivered intact, 3-vessel cord, gentle cord traction. On inspection of the perineum, vagina, and cervix, the re was noted to be a first-degree perineal laceration, which was repaired with 3-0 Vicryl in continuo us running stitch. Needle, sponge, and instrument counts were correct at the completion of the case. Both mother and were stable in the immediate post-delivery period. Job ID: [id number]
== END 2021-08-20 17:10 | disposition home or self-care (01) | DRG 807 ==
LOC: OPB 09:50 → 4S1 09:50 → 4E2 20:43